=== PATIENT | female | born 1955 | race African-American/Black ===

== ENCOUNTER 2018-06-09 19:44 | Emergency (ER) | payer OTHER ==
[~2018-06-09] VITALS: Ht 177.8 cm; Wt 127.0 kg
[~2018-06-09 19:44] MED LIST: ADVAIR 250-501 EACH; AMITRIPTYLINE H25 M4; CIPROFLOXACIN500 M1 PO; EPIPEN 2-P0.3 MG/0.3 IM; KLOR-CON 1010 MEQ PO; LAMICTAL100 MG PO; LANTUS; METFORMIN HCL500 MG PO; MIGRELIEF CAPL1 EACH PO; MUCINEX TA600 MG/TA2 PO; NABUMETONE 500500 M1; NEURONTIN 300300 M1; NORCO 5-325 TA1 EACH PO; NOVOLOG100 UNIT/1; OMEPRAZOLE 20 M20 MG; PAXIL10 MG PO; PLAVIX 75 MG TA75 M1 PO; PREDNISONE50 MG PO; PRINIVIL5 MG; SEIZURE MEDICATION; SIMVASTATIN20 MG; SINGULAIR 10 MG10 M1 PO; SPIRIVA INH; TESSALON PERLE100 MG PO; TRAMADOL 50 MG50 MG PO; TUSSIONEX PENN473 ML PO; VOLTAREN GEL 1100 G2; XANAX 1 MG TABLE1 MG PO; ZPAK PO
[2018-06-09 20:27] LABS: ABSOLUTE NEUTROPHILS 3.4 thou/uL (1.4-8.2); BASOPHILS 0.8 % (0.0-2.0); EOSINOPHILS 3.4 % (0.0-3.0); HEMATOCRIT 41.3 % (37.0-47.0); HEMOGLOBIN 13.6 gm/dL (12.0-15.0); MCH 28.1 pg (26.0-34.0); MCV 85.1 fL (80.0-100.0); MONOCYTES 7.7 % (1.0-8.0); PLATELET COUNT 324 thou/uL (150-400); POLYS 65.1 % (36.0-66.0); RBC 4.85 mil/uL (4.20-5.00); RDW 13.9 % (10.5-14.5); WBC 5.2 thou/uL (4.0-11.0)
[2018-06-09 20:40] LABS: ANION GAP 11 mmol/L (7-16); BUN 31 mg/dL (7-18); CALCIUM 10.7 mg/dL (8.5-10.1); CHLORIDE 98 mmol/L (98-107); CO2 26 mmol/L (21-32); CREATININE 1.2 mg/dL (0.6-1.0); GLUCOSE 141 mg/dL (74-106); POTASSIUM 4.8 mmol/L (3.5-5.1); SODIUM 135 mmol/L (136-145)
[2018-06-09 20:50] LABS: ALBUMIN 3.9 g/dL (3.4-5.0); SGOT 25 U/L (15-37); SGPT 38 U/L (30-65); TOTAL BILIRUBIN 0.4 mg/dL (<0.1-1.0); TROPONIN-I <0.06 ng/mL (<0.06)
[2018-06-09 22:12] LABS: MAGNESIUM 1.8 mg/dL (1.8-2.4)
[2018-06-09 22:19] LABS: URINE BILIRUBIN NEGATIVE (Negative); URINE BLOOD NEGATIVE (Negative); URINE CLARITY CLEAR; URINE COLOR YELLOW; URINE GLUCOSE-RANDOM* NEGATIVE (Negative); URINE KETONES NEGATIVE (Negative); URINE LEUKOCYTES-REFLEX NEGATIVE (Negative); URINE NITRITE-REFLEX NEGATIVE (Negative); URINE PROTEIN (DIPSTICK) NEGATIVE (Negative); URINE SPECIFIC GRAVITY <= 1.005 (1.005-1.035); URINE UROBILINOGEN 0.2 E.U./dl (0.2-1.0)
[2018-06-09 22:23] LABS: APTT 22.6 Seconds (24.5-32.8); D-DIMER 4.3 ug/mLFEU (0.19-0.50)
[2018-06-10] MEDS ORDERED: VENTOLIN HFA 1818 GM INH (00:28)
[2018-06-10] MEDS ORDERED: AUGMENTIN 875-1 EACH PO (00:28)
[2018-06-10] MEDS ORDERED: PREDNISONE 20 M20 MG PO (00:28)
[2018-06-10 01:30] VITALS: BP 138/83
--- NOTE | 2018-06-10 10:35 | EKG ---
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: : 1955 Requested By: Riddhi Jewell Order Number: [id number] MD: Andres Burgos Measurements Intervals [place] Rate: 91 P: -16 MO: 159 QRS: 14 QRSD: 99 T: 36 QT: 362 QTc: 446 Interpretive Statements Sinus rhythm Compared to ECG 04/30/2015 12:30:27 No significant changes Electronically Signed On 06-10-2018 10:35:51 CDT by Andres Burgos [email or web address] ��������������������������������������������� <ELECTRONICALLY SIGNED> ���������������������������������������� By: Andres Burgos MD ��������������������������������������������� 06/10/18 1035 01 01 Andres Burgos MD /EPI
== END 2018-06-10 01:36 | disposition home or self-care (01) ==
LOC: ER 19:44
PROVIDERS: Emergency Medicine; Physician Assistant
DX: R06.02 Shortness of breath (principal); E11.22 Type 2 diabetes mellitus with diabetic chronic kidney disease; N18.9 Chronic kidney disease, unspecified; K59.00 Constipation, unspecified; R59.0 Localized enlarged lymph nodes; R79.1 Abnormal coagulation profile; E66.01 Morbid (severe) obesity due to excess calories; E11.40 Type 2 diabetes mellitus with diabetic neuropathy, unspecified; J44.9 Chronic obstructive pulmonary disease, unspecified; G47.30 Sleep apnea, unspecified; M19.90 Unspecified osteoarthritis, unspecified site; E78.5 Hyperlipidemia, unspecified; Z68.41 Body mass index [BMI] 40.0-44.9, adult; Z79.4 Long term (current) use of insulin; Z79.899 Other long term (current) drug therapy; Z88.8 Allergy status to other drugs, medicaments and biological substances

== ENCOUNTER → 2018-07-17 | Outpatient (CLI) | payer OTHER ==
[~2018-07-17] MED LIST changes: +AUGMENTIN 875-1 EACH PO; +PREDNISONE 20 M20 MG PO; +VENTOLIN HFA 1818 GM INH
[2018-07-17 08:13] LABS: HEMATOCRIT 40.5 % (37.0-47.0); HEMOGLOBIN 13.3 gm/dL (12.0-15.0); MCH 28.2 pg (26.0-34.0); MCHC 32.8 g/dL (28.0-37.0); MCV 85.9 fL (80.0-100.0); RBC 4.72 mil/uL (4.20-5.00); RDW 13.9 % (10.5-14.5); WBC 4.5 thou/uL (4.0-11.0)
[2018-07-17 08:23] LABS: CALCIUM 10.5 mg/dL (8.5-10.1); CREATININE 1.1 mg/dL (0.6-1.0); POTASSIUM 4.8 mmol/L (3.5-5.1)
[2018-07-17 08:28] LABS: APTT 25.3 Seconds (24.5-32.8); PROTIME 10.3 Seconds (9.3-11.4)
--- NOTE | 2018-07-20 10:06 | PATH ---
[facility] [address] [place] [address] PATHOLOGY RPT PROCEDURE Name: SAMARIA NUNEZ Room #: REG [facility] M.R.#: [id number] ������������������ Admission: 07/17/18 ������������������ Date of : 57 Discharge: Report #: [id number] Path Case #: [id number] LCA Accession Number: [id number] . 01 Material submitted: . lymph node - LEFT NECK LYMPH NODE. Modifiers: left, neck . 01 Clinical history: . Left lymph node, for lymphoma . 02 Diagnosis: Lymph node "left neck lymph node: - Granulomatous inflammation consistent with a granuloma. See comment. (SHA:melinda; 07/18/2018) QMS/07/18/2018 . 02 Comment: The differential includes infection and sarcoidosis. An acid-fast and fungal stain are negative Since this is a biopsy partial involvement by a lymphoma or a malignancy cannot be excluded as the entire lymphnode is not present for evaluation. Suggest clinical correlation. Flow studies are pending. This case is also reviewed by Dr. Kayla Boudreaux. (SHA:melinda; 07/18/2018) . 02 Addendum: . Special studies report received from [facility], [address] [place] [address], [address], [place], [address], on case [id number], labeled with their number [id number], dated 07/19/2018. . Flow Cytometry: Hematologic Neoplasia Assessment . Clinical History Evaluation for hematolymphoid neoplasia . Indication for Study Evaluation for hematolymphoid neoplasia . Specimen Lymph Node, Left . Viability 83% (7AAD exclusion) . Interpretation Lymph Node, Left: - No significant lymphoid immunophenotypic abnormalities detected (see [address] [address] PATHOLOGY RPT PROCEDURE Name: SAMARIA NUNEZ Room #: REG [facility]..#: [id number] ������������������ Admission: 07/17/18 ������������������ Date of : 57 Discharge: Report #: [id number] Path Case #: [id number] comment). . Comments There are no significant immunophenotypic abnormalities in this specimen. It is of note that non- hematolymphoid neoplasms, Hodgkin lymphoma, some T-cell lymphomas and some large cell lymphomas cannot be totally excluded based solely on flow cytometry analysis. Correlation with available clinical, laboratory, and morphologic data is recommended. . Populations Analyzed Lymphocytes: 76% B-cells: 27.2%, polytypic/polyclonal sIg light chain pattern T-cells: no significant abnormalities of the markers tested CD4:CD8: 8.9 NK cells: 1.0% Granulocytes: 1% Present CD45 Negative 22% No significant reactivity with the markers tested Events/Debris: (may represent non-hematolymphoid cells, degenerated cells, debris, unlysed red blood cells, etc.) . Morphologic Evaluation A slide was reviewed for quality inspector purposes only. . Specimen Description Total Cell Yield: 0.69X10 and 6 . Reagent(s) Used CD2, CD3, CD4, CD5, CD7, CD8, CD10, CD11b, CD19, CD20, CD23, CD30, CD38, CD43, CD45, CD56, CD57, FMC-7, HLA-DR, kappa, lambda . Electronically Signed by Elissa Rodriguez MD at 10:19AM [facility] on 07/19/2018 at [facility]. Elissa Rodriguez MD Pathologist . . Intended Use Flow cytometry is optimally used to immunophenotypically characterize abnormal populations when they are detected. Negative flow cytometry results do not exclude lymphoma or neoplasia. Possible false negative flow cytometry results may occur in, but are not limited to, the following: neoplastic cells in Hodgkin lymphoma are not typically adequately represented by routine clinical flow cytometry; neoplastic cells may be lost or inadequately represented due to degeneration, sample processing, sampling artifact, or patchy involvement; plasma cells are typically underrepresented by flow cytometry; immature cells/blasts may be underrepresented due to hemodilution; myeloproliferative disorders and low [address] [address] PATHOLOGY RPT PROCEDURE Name: SAMARIA NUNEZ Room #: REG CLGiancarlo Coppola#: [id number] ������������������ Admission: 07/17/18 ������������������ Date of : 57 Discharge: Report #: [id number] Path Case #: [id number] grade myelodysplasia may not have immunophenotypic abnormalities or increased blasts. Correlation with all available clinical, laboratory, and morphologic data is always necessary to assess for the possibility of false negative flow cytometry results and to establish a diagnosis. Each marker in this analysis was used to assess for potential antigenic abnormalities or to evaluate detected abnormalities. . Disclaimer(s) This test was performed at [facility]. at [address] [place], [address] - Commissioning Specialist: Rich Winslow MD. [employer] is a business unit of [employer] a wholly-owned subsidiary of [employer]. . Any image or images that accompany this report are termite control representative images only and should not be used to render a diagnosis. . This test was developed and its performance characteristics determined by [employer]. It has not been cleared or approved by the Food and Drug Administration (FDA). The FDA has determined that such clearance or approval is not necessary. . For inquiries, the physician may contact Lab: [phone] . A complete copy of the report is on file. . Professional services performed by [employer]. at [address], [place] [address]. Technical services performed by [employer]. at [address], [place] [address]. . (AMJ 07/19/2018) . AZJ/07/19/2018 Addendum Electronically Signed by Dmitry Echavarria MD. Pathologist . 02 Electronically signed: . Dmitry Echavarria MD, Pathologist NPI- [id number] . 01 Gross description: . The specimen is received in formalin, labeled "Yanna Nunez, left neck lymph node", are several jefferson-brown, hemorrhagic fragments measuring 0.4 x 0.2 x 0.1 cm in aggregate. The specimen is entirely submitted in A1. Also received is an RPMI tube, labeled with patient's name and left neck lymph node. This is forwarded for flow cytometry studies. (SWS; 07/17/2018) [facility] [address] [place] [address] PATHOLOGY RPT PROCEDURE Name: SAMARIA NUNEZ Room #: REG [facility].#: [id number] ������������������ Admission: 07/17/18 ������������������ Date of : 57 Discharge: Report #: [id number] Path Case #: [id number] SHS/SHS . 02 Microscopic: . . . 02 Pathologist provided ICD-10: I88.8 . 02 CPT . 554720, 822682, 596488 Specimen Comment: A courtesy copy of this report has been sent to Specimen Comment: [phone], , . Specimen Comment: Report sent to ,DR WALLER / DR BOSE Performed at: 01 [facility] [address], [place], [place] [id number] MD Amaury Gama MD Phone: [phone] Performed at: 02 [facility] [address], [place] [id number] MD Fabiola Vance MD Phone: [phone]
== END | disposition home or self-care (01) ==
LOC: ULTRA 07:06 → RAD 07:06 → ULTRA 16:06
PROVIDERS: Internal Medicine
DX: I88.8 Other nonspecific lymphadenitis (principal); R92.1 Mammographic calcification found on diagnostic imaging of breast; N18.6 End stage renal disease; G43.909 Migraine, unspecified, not intractable, without status migrainosus; F41.9 Anxiety disorder, unspecified; E11.9 Type 2 diabetes mellitus without complications; J44.9 Chronic obstructive pulmonary disease, unspecified; M19.90 Unspecified osteoarthritis, unspecified site; G62.9 Polyneuropathy, unspecified; E66.01 Morbid (severe) obesity due to excess calories; Z79.4 Long term (current) use of insulin; Z79.899 Other long term (current) drug therapy; Z88.8 Allergy status to other drugs, medicaments and biological substances; Z98.0 Intestinal bypass and anastomosis status; Z98.890 Other specified postprocedural states

== ENCOUNTER → 2018-11-15 | Outpatient (CLI) | payer OTHER ==
[2018-11-15 08:00] LABS: CREATININE 1.3 mg/dL (0.6-1.0)
== END ==
LOC: CAT 06:59
PROVIDERS: Internal Medicine
DX: D86.9 Sarcoidosis, unspecified (principal); E27.9 Disorder of adrenal gland, unspecified; J45.909 Unspecified asthma, uncomplicated; E11.9 Type 2 diabetes mellitus without complications; E78.5 Hyperlipidemia, unspecified; I10 Essential (primary) hypertension; G43.909 Migraine, unspecified, not intractable, without status migrainosus; E66.9 Obesity, unspecified; G47.33 Obstructive sleep apnea (adult) (pediatric)

== ENCOUNTER 2019-01-21 14:38 | Emergency (ER) | payer OTHER ==
[~2019-01-21] VITALS: Ht 167.6 cm; Wt 115.2 kg
[2019-01-21 15:21] LABS: ABSOLUTE NEUTROPHILS 4.5 thou/uL (1.4-8.2); BASOPHILS 1.4 % (0.0-2.0); EOSINOPHILS 2.6 % (0.0-3.0); HEMATOCRIT 39.9 % (37.0-47.0); LYMPHOCYTES 23.4 % (24.0-44.0); MCH 28.6 pg (26.0-34.0); MCHC 32.5 g/dL (28.0-37.0); MCV 88.1 fL (80.0-100.0); MONOCYTES 6.7 % (1.0-8.0); PLATELET COUNT 351 thou/uL (150-400); POLYS 65.9 % (36.0-66.0); RBC 4.53 mil/uL (4.20-5.00); RDW 13.7 % (10.5-14.5); WBC 6.8 thou/uL (4.0-11.0)
[2019-01-21 15:31] LABS: CALCIUM 9.9 mg/dL (8.5-10.1); CREATININE 1.2 mg/dL (0.6-1.0); POTASSIUM 4.3 mmol/L (3.5-5.1)
[2019-01-21 15:37] LABS: ALBUMIN 3.8 g/dL (3.4-5.0); TOTAL BILIRUBIN 0.4 mg/dL (<0.1-1.0)
[2019-01-21 18:14] VITALS: BP 97/54
== END 2019-01-21 18:15 | disposition home or self-care (01) ==
LOC: ER 14:38
PROVIDERS: Emergency Medicine
DX: K59.00 Constipation, unspecified (principal); E66.01 Morbid (severe) obesity due to excess calories; R10.84 Generalized abdominal pain; J44.9 Chronic obstructive pulmonary disease, unspecified; J45.909 Unspecified asthma, uncomplicated; E78.5 Hyperlipidemia, unspecified; E11.40 Type 2 diabetes mellitus with diabetic neuropathy, unspecified; Z88.8 Allergy status to other drugs, medicaments and biological substances; Z79.899 Other long term (current) drug therapy; Z79.4 Long term (current) use of insulin

== ENCOUNTER → 2019-03-21 | Outpatient (CLI) | payer OTHER ==
[~2019-03-21] MED LIST changes: -AMITRIPTYLINE H25 M4; +AMITRIPTYLINE H25 M4 PO; +AMITRIPTYLINE H75 M1 PO; +EMGALITY S120 MG/1 M SUBQ; +FISH OIL 1,0001 EAC9 PO; +JANUMET XR 50-1 EAC1 PO; +MELATONIN3 M1 PO; +NABUMETONE 500500 M1 PO; -NEURONTIN 300300 M1; +NEURONTIN 300300 M1 PO; -NOVOLOG100 UNIT/1; +NOVOLOG100 UNIT/1 SUBQ; +RAMIPRIL10 MG PO; +SUPER THERAVIT1 EACH PO; +TOPAMAX 25 MG T25 M1 PO; +TOUJEO SOL300 UNIT/1 SUBQ; +TRELEGY ELLIPT1 EACH INH
== END ==
LOC: SJCVC 15:03
DX: R94.31 Abnormal electrocardiogram [ECG] [EKG] (principal); I10 Essential (primary) hypertension; J44.9 Chronic obstructive pulmonary disease, unspecified; E11.9 Type 2 diabetes mellitus without complications; E78.5 Hyperlipidemia, unspecified; G47.33 Obstructive sleep apnea (adult) (pediatric); Z90.49 Acquired absence of other specified parts of digestive tract; Z90.710 Acquired absence of both cervix and uterus; Z79.899 Other long term (current) drug therapy

== ENCOUNTER → 2019-04-19 | Outpatient (CLI) | payer OTHER | LOC: SJCVCIMAG 07:33 | DX: R06.00 Dyspnea, unspecified (principal); R60.9 Edema, unspecified; I48.91 Unspecified atrial fibrillation; D86.9 Sarcoidosis, unspecified; R94.31 Abnormal electrocardiogram [ECG] [EKG]; I10 Essential (primary) hypertension; J44.9 Chronic obstructive pulmonary disease, unspecified; E11.9 Type 2 diabetes mellitus without complications; E78.5 Hyperlipidemia, unspecified; E66.9 Obesity, unspecified; Z79.4 Long term (current) use of insulin; Z79.84 Long term (current) use of oral hypoglycemic drugs; Z79.82 Long term (current) use of aspirin; Z79.899 Other long term (current) drug therapy ==

== ENCOUNTER 2020-04-23 10:55 | Emergency (ER) | payer OTHER ==
[~2020-04-23] VITALS: Ht 167.6 cm; Wt 123.4 kg
[2020-04-23 11:51] LABS: ABSOLUTE NEUTROPHILS 2.1 thou/uL (1.4-8.2); EOSINOPHILS 4.3 % (0.0-3.0); HEMATOCRIT 39.1 % (37.0-47.0); HEMOGLOBIN 12.6 gm/dL (12.0-15.0); LYMPHOCYTES 29.7 % (24.0-44.0); MCH 28.2 pg (26.0-34.0); MCHC 32.2 g/dL (28.0-37.0); MCV 87.5 fL (80.0-100.0); MONOCYTES 9.4 % (1.0-8.0); PLATELET COUNT 232 thou/uL (150-400); POLYS 55.6 % (36.0-66.0); RBC 4.47 mil/uL (4.20-5.00); RDW 13.7 % (10.5-14.5); WBC 3.8 thou/uL (4.0-11.0)
[2020-04-23 12:01] LABS: ANION GAP 11 mmol/L (7-16); BUN 17 mg/dL (7-18); CALCIUM 9.1 mg/dL (8.5-10.1); CHLORIDE 99 mmol/L (98-107); CO2 24 mmol/L (21-32); CREATININE 1.3 mg/dL (0.6-1.0); GLUCOSE 289 mg/dL (74-106); SODIUM 134 mmol/L (136-145)
[2020-04-23 12:11] LABS: ALBUMIN 3.8 g/dL (3.4-5.0); SGOT 27 U/L (15-37); SGPT 36 U/L (30-65); TOTAL BILIRUBIN 0.4 mg/dL (0.2-1.0); TOTAL PROTEIN 7.2 g/dL (6.4-8.2); TROPONIN-I <0.06 ng/mL (<0.06)
[2020-04-23] MEDS ORDERED: PREDNISONE 20 M20 MG PO (13:22)
[2020-04-23 14:11] VITALS: BP 165/89
--- NOTE | 2020-04-24 07:11 | EKG ---
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 : 1955 Requested By: Austin Connelly Order Number: [id number] MD: Bobby Knapp Measurements Intervals [place] Rate: 100 P: 37 MD: 166 QRS: 7 QRSD: 103 T: 93 QT: 328 QTc: 423 Interpretive Statements Sinus tachycardia Low voltage, precordial leads Compared to ECG 06/09/2018 20:02:15 Low QRS voltage now present Sinus rhythm no longer present Electronically Signed On 04-24-2020 7:10:57 IMMIGRATION INVESTIGATOR by Bobby Knapp [email or web address] <ELECTRONICALLY SIGNED> By: Bobby Knapp MD, [facility] 04/24/20 0710 1127 26 Bobby Knapp MD, FACC /EPI
== END 2020-04-23 14:12 | disposition home or self-care (01) ==
LOC: ER 10:55
PROVIDERS: Emergency Medicine
DX: J45.901 Unspecified asthma with (acute) exacerbation (principal); E11.9 Type 2 diabetes mellitus without complications; J44.9 Chronic obstructive pulmonary disease, unspecified; E78.5 Hyperlipidemia, unspecified; K21.9 Gastro-esophageal reflux disease without esophagitis; G43.909 Migraine, unspecified, not intractable, without status migrainosus; Z79.4 Long term (current) use of insulin; Z79.899 Other long term (current) drug therapy; Z88.6 Allergy status to analgesic agent; Z88.8 Allergy status to other drugs, medicaments and biological substances; Z20.822 Contact with and (suspected) exposure to COVID-19

== ENCOUNTER → 2020-04-29 | Outpatient (CLI) | payer OTHER | LOC: RAD 08:52 | PROVIDERS: ATTEND Internal Medicine | DX: J98.11 Atelectasis (principal); R06.00 Dyspnea, unspecified ==

== ENCOUNTER 2020-06-17 09:43 | Emergency (ER) | payer OTHER ==
[~2020-06-17] VITALS: Ht 167.6 cm; Wt 123.4 kg
[2020-06-17 10:40] LABS: BASOPHILS 1.1 % (0.0-2.0); HEMATOCRIT 39.9 % (37.0-47.0); HEMOGLOBIN 13.2 gm/dL (12.0-15.0); LYMPHOCYTES 20.4 % (24.0-44.0); MCH 28.7 pg (26.0-34.0); MCV 86.9 fL (80.0-100.0); PLATELET COUNT 270 thou/uL (150-400); POLYS 67.5 % (36.0-66.0); RDW 14.2 % (10.5-14.5); WBC 4.5 thou/uL (4.0-11.0)
[2020-06-17 10:49] LABS: CALCIUM 9.3 mg/dL (8.5-10.1); CREATININE 1.2 mg/dL (0.6-1.0)
[2020-06-17 10:55] LABS: URINE BILIRUBIN NEGATIVE (Negative); URINE BLOOD TRACE (Negative); URINE CLARITY SL CLOUDY; URINE COLOR YELLOW; URINE GLUCOSE-RANDOM* NEGATIVE (Negative); URINE KETONES TRACE (Negative); URINE LEUKOCYTES-REFLEX NEGATIVE (Negative); URINE NITRITE-REFLEX NEGATIVE (Negative); URINE PROTEIN (DIPSTICK) NEGATIVE (Negative); URINE SPECIFIC GRAVITY 1.015 (1.005-1.035)
[2020-06-17 10:56] LABS: ALBUMIN 3.6 g/dL (3.4-5.0); TOTAL BILIRUBIN 1.1 mg/dL (0.2-1.0)
[2020-06-17 12:21] VITALS: BP 109/48
== END 2020-06-17 12:22 | disposition home or self-care (01) ==
LOC: ER 09:43
PROVIDERS: Emergency Medicine
DX: K59.00 Constipation, unspecified (principal); R10.84 Generalized abdominal pain; E66.01 Morbid (severe) obesity due to excess calories; E11.9 Type 2 diabetes mellitus without complications; M19.90 Unspecified osteoarthritis, unspecified site; G62.9 Polyneuropathy, unspecified; G43.909 Migraine, unspecified, not intractable, without status migrainosus; Z88.8 Allergy status to other drugs, medicaments and biological substances; Z88.6 Allergy status to analgesic agent; Z79.899 Other long term (current) drug therapy

== ENCOUNTER → 2020-09-14 | Outpatient (CLI) | payer OTHER ==
[~2020-09-14] VITALS: Ht 177.8 cm; Wt 113.4 kg
[~2020-09-14] MED LIST changes: +AMITRIPTYLINE H50 M2 PO; +MULTI VITAMIN1 EACH PO; -NABUMETONE 500500 M1 PO; +NABUMETONE 500500 M2 PO; +NEURONTIN300 MG PO; +PRAVASTATIN SOD80 MG PO; +TRELEGY ELLIPT1 EAC1 INH; +TRULICITY0.75 MG/0. SUBQ; +ZZZQUIL25 M1 PO
--- NOTE | 2020-09-15 16:06 | PATH ---
[facility] [place] [address] PATHOLOGY RPT PROCEDURE Name: SAMARIA NUNEZ Room #: REG KAYDEN Solares.#: [id number] Admission: 09/14/20 Date of : 57 Discharge: Report #: [id number] Path Case #: [id number] LCA Accession Number: [id number] . 01 Material submitted: . PART A: stomach - ANTRUM BIOPSY R/O H. PYLORI PART B: esophagus - ESOPHAGUS BIOPSY R/O EOSINOPHILIC ESOPHAGITIS . 01 Clinician provided ICD-10: n . 01 Clinical history: . EGD/COLONOSCOPY ABD PAIN/CONSTIPATION GASTRITIS/ESOPHAGEAL STRICTURE/DIVERTICULOSIS . 02 Diagnosis: A. Gastric mucosa, antrum, endoscopic biopsy: - Mild chronic gastritis with features of reactive gastropathy as well as extensive intestinal metaplasia. - Negative for atrophy or dysplasia. - Negative for Helicobacter pylori (properly controlled immunohistochemical stain performed). . B. Squamous mucosa, esophagus R/O eosinophilic esophagitis, endoscopic biopsy: - Mild active esophagitis with features of reflux esophagitis. - Negative for increase in intraepithelial eosinophils. - Negative for intestinal metaplasia or dysplasia. (IUV:melinda; 09/15/2020) QMS 09/15/2020 1252 Local . 02 Electronically signed: . Fabiola Vance MD, Pathologist NPI- [id number] . 01 Gross description: . A. The specimen is received in formalin, labeled "Samaria Nunez L and antrum BX". It consists of multiple jefferson irregular soft tissue fragments measuring 0.8 x 0.6 x 0.2 cm in aggregate. The specimen is entirely submitted between sponges in A1. . B. The specimen is received in formalin, labeled " Samaria Nunez L and esophagus BX". It consists of multiple jefferson-white, irregular soft tissue fragments measuring 1.5 x 0.5 x 0.1 cm in aggregate. The specimen is placed in a biopsy bag and entirely submitted in B1. (MRF; 09/14/2020) [place] [address] PATHOLOGY RPT PROCEDURE Name: SAMARIA NUNEZ Room #: REG CLGiancarlo M.R.#: [id number] Admission: 09/14/20 Date of : 57 Discharge: Report #: [id number] Path Case #: [id number] MFE/MFE 09/15/2020 [facility] Local . 02 Pathologist provided ICD-10: K29.50, K20.90 . 02 CPT . 434896, 595619, O85455 Specimen Comment: A courtesy copy of this report has been sent to [phone] Specimen Comment: 1852 Specimen Comment: Report sent to , DR HORNER / DR BOSE Performed at: [address], [place], [place] [id number] MD Dmitry Echavarria MD Phone: [phone] Performed at: [address] [id number] MD Fabiola Vance MD Phone: [phone]
== END | disposition home or self-care (01) ==
LOC: GI 04-17 09:36
PROVIDERS: ATTEND Internal Medicine Gastroenterology
DX: R10.84 Generalized abdominal pain (principal); R10.13 Epigastric pain; R13.10 Dysphagia, unspecified; K31.9 Disease of stomach and duodenum, unspecified; K59.00 Constipation, unspecified; K29.50 Unspecified chronic gastritis without bleeding; K21.00 Gastro-esophageal reflux disease with esophagitis, without bleeding; I10 Essential (primary) hypertension; I25.10 Atherosclerotic heart disease of native coronary artery without angina pectoris; E11.9 Type 2 diabetes mellitus without complications; J44.9 Chronic obstructive pulmonary disease, unspecified; E78.5 Hyperlipidemia, unspecified; G43.909 Migraine, unspecified, not intractable, without status migrainosus; F32.9 Major depressive disorder, single episode, unspecified; F41.9 Anxiety disorder, unspecified; M19.90 Unspecified osteoarthritis, unspecified site; Z98.890 Other specified postprocedural states; Z87.19 Personal history of other diseases of the digestive system; Z79.899 Other long term (current) drug therapy; Z79.4 Long term (current) use of insulin
CPT/HCPCS: 62110; 62900

== ENCOUNTER 2020-10-01 07:11 | Inpatient (IN) | payer OTHER ==
[~2020-10-01] VITALS: Ht 180.3 cm; Wt 118.8 kg
[2020-10-01 08:55] LABS: CALCIUM 8.8 mg/dL (8.5-10.1); POTASSIUM 4.1 mmol/L (3.5-5.1)
[2020-10-01 09:03] LABS: ALBUMIN 3.1 g/dL (3.4-5.0); TOTAL BILIRUBIN 0.3 mg/dL (0.2-1.0); TOTAL PROTEIN 6.8 g/dL (6.4-8.2)
[2020-10-01 09:35] VITALS: BP 153/78
[2020-10-01 11:33] VITALS: BP 138/70
[2020-10-01 15:45] VITALS: BP 149/86
--- NOTE | 2020-10-01 19:38 | NUR ---
Patient admit to unit via bed. Her is at bedside. A/OX4. Om 3 L o2 via nasal cannula. Bedbound. Has 2 gauze dressing oN ABD-dry, clean and intact. Iv fluids infusing @ 75 ml/hr, 20 g right hand. Incont of b/b She states she does not use o2 at home. Her pain level is 8/10 to abd, fentanyl given.
[2020-10-01 20:07] VITALS: BP 174/93
--- NOTE | 2020-10-02 05:24 | NUR ---
Pt. rested quietly at intervals during the night when checked on during frequent rounds. Pain meds given for c/o abdominal pain (see emar) with some relief of pain noted. Dressing to abdomen is dry and intact. Bed alarm is on.
[2020-10-02 07:56] VITALS: BP 138/70
--- NOTE | 2020-10-02 10:46 | NUR ---
Assumed care of pt at 0700. Pt a&ox4. C/o pain in abdomen. Prn pain medications administered. Dressings c/d/i. 3L O2. Incontinent. IVF infusing. Talked to pt's over the phone and updated on patient's status. Call light within reach. Fall precautions in place. Will continue to monitor.
--- NOTE | 2020-10-02 13:32 | O ---
[facility] [place] [address] [address] [place] [address] OPERATIVE REPORT Name: SAMARIA OLMEDO Room #: 444-P [facility] M.RTimo#: [id number] Admission: 10/01/20 Attend Phys: Finesse Hawkins MD Discharge: Date of : 57 Report #: [id number] THIS REPORT FOR: cc: Chilo Gupta MD,Finesse Sloan MD, MD ~ cc: Melchor Gupta MD DATE OF SERVICE: 10/01/2020 PREOPERATIVE DIAGNOSES: Cholecystitis with small soft gallstones. POSTOPERATIVE DIAGNOSES: Cholecystitis with cholelithiasis, lots of intraabdominal adhesions. PROCEDURE PERFORMED: 1. Attempted laparoscopic cholecystectomy converted to open cholecystectomy due to extensive adhesions. 2. Lysis of adhesions. SURGEON: Finesse Hawkins MD ANESTHESIA: General anesthesia. COMPLICATIONS: None. ESTIMATED BLOOD LOSS: 250 mL DESCRIPTION OF PROCEDURE: With the patient under general anesthesia, abdomen was prepped and draped in sterile fashion. A timeout was performed. The patient has had multiple midline incision. I decided to make a small cut down incision lateral and slightly superior to the umbilicus along the edge of the rectus muscle. A 2.5 cm incision was made. The anterior fascia was identified. The anterior fascia was opened transversely. The muscle was spread. The posterior fascia was then grasped with hemostat. This was also opened. The suture placed on the fascial layers. When the posterior fascia was opened, there is adhesion in this area and I gently probed it with my finger and noted that the adhesion was not easy to be . There is no free space. I decided to go ahead and make another incision up higher about 2 fingerbreadths beneath the costal margin. This was made in the midclavicular line. After incising through skin and subcutaneous tissue, what appears to be the anterior fascia was also identified. This was opened up, 0 Vicryl suture placed on this, muscle was spread. The posterior fascia was opened. After opening this, there was an adhesion just below this, looks like it is soft and like intestine. At this point, I could not proceed any further laparoscopically. I broke scrub and went out to talk to the and made him aware that if we continue, I have [address] [address] OPERATIVE REPORT Name: SAMARIA OLMEDO Room #: 444-P [facility] Bill Coppola#: [id number] Admission: 10/01/20 Attend Phys: Finesse Hawkins MD Discharge: Date of : 57 Report #: [id number] to make an open incision. He tried to call his daughter who is a doctor and he could not get through, but he decided to go ahead and proceed. I reviewed the CT scan and I do not see much around the area of the gallbladder. Incision was then enlarged. Cautery was used to obtain hemostasis. The patient did have prominent blood vessels. These were clipped or ligated with 2-0 Vicryl tie. The anterior fascia was opened, rectus muscle was divided. Posterior fascia was opened and right medial to where I was located, there was actually free space in the peritoneal cavity, but the liver was identified and it was adherent to the structure that I first identified under the laparoscopic cutdown site. This turned out to be the gallbladder. The lateral person had to be opened and adhesions had to be divided here. The colon was noted to be deep underneath some fat tissue. The gallbladder was from the adhesions underneath. There was some thickening of scar tissue lateral to the gallbladder. Gallbladder was then taken from top down. There were some vessels in the liver bed that were also actively bleeding. This accounted for the blood loss. Clips were applied. The peritoneum over the cystic duct was then dissected free once the entire gallbladder was freed from the adhesion. Gallbladder was cased in adhesions. The cystic artery was then found. This was clipped x2 proximally and 1 distally and then divided. The cystic duct was then isolated. There was some fibrous tissue around the cystic duct. The cystic duct was clipped between the gallbladder and the cystic duct opening was made in the cystic duct just proximal to this, cholangiogram catheter was placed. Fluoroscopic cholangiogram was obtained. On initial run, the cholangiogram catheter was identified in the cystic duct. No harm to the common duct. The upper part of the hepatic duct filled out well. The portions of the common duct was also filled out. I did not see any definite filling defect. There appears to be some thickened material, probably sludge. However, I could not get any dye to go in distal common duct nor the duodenum. Glucagon was given and repeat injection was performed again about 20 mL of half contrast and the duct filled out. Again, no visible spillage was identified. There was a liver function test from this morning and her bilirubin is normal. The liver functions are normal. No signs of obstruction. This is thought to be sludge and also spasm of the ampulla. Further cholangiogram was then abandoned. Catheter was then removed. The proximal cystic duct was then clipped and also ligated with 2-0 silk tie. Hemostasis was then checked further. Irrigation was performed. Surgicel fibrillar was placed on the liver bed. Hemostasis obtained. Hemostasis was also obtained. The sponges were all removed. Lap counts and the instrument counts were correct. The abdominal wall was then closed. Posterior fascia was closed with running 0 PDS suture and the anterior fascia was closed with 0 Prolene in running fashion. The skin was irrigated, closed with 4-0 PDS running subcuticular fashion. The small initial cutdown incision was closed with 0 Vicryl. The posterior fascia was closed with [id number] 0 Vicryl x2. The anterior fascia was also closed with 0 Vicryl [id number] x2. Care was taken when closing the posterior fascia not to harm the underlying tissue. [facility] [address] [place] [address] OPERATIVE REPORT Name: SAMARIA OLMEDO Room #: 444-P [facility]..#: [id number] Admission: 10/01/20 Attend Phys: Finesse Hawkins MD Discharge: Date of : 57 Report #: [id number] Skin was closed with 5-0 PDS. Steri-Strip, Band-Aids applied. A 4 x 4 Op-Site placed on the subcostal incision. The patient was awakened and taken to recovery room, tolerated the procedure well. <ELECTRONICALLY SIGNED> By: Finesse Hawkins MD 10/02/20 [phone] Finesse Hawkins MD /nt
--- NOTE | 2020-10-02 14:01 | NUR ---
ASSESSMENT: CM REVIEWED CHART AND SPOKE WITH PATIENT AT THE BEDSIDE. PT WAS ADMITTED DUE TO LAP FELY. PT REPORTS THAT SHE LIVES IN A HOUSE WITH HER . PT REPORTS HAVING ABOUT 2 STEPS TO ENTER THE HOME AND HER ASSIST HER WITH THESE. PT REPORTS ONCE INSIDE SHE HAS NO STEPS SHE HAS TO USE. PT REPORTS USING A WALKER FOR AMBULATION AND STATES THEY HAVE A COMMODE. PT REPORTS TAHT SHE HAS HAD [facility] IN THE PAST AND NEVER HAD A POST ACUTE CARE STAY. PT WORKED WITH THERAPY TODAY AND THEY ARE RECOMMENDING POST ACUTE CARE STAY. CM MET WITH PATIENT AND PROVIDED HER WITH A SNF LIST. PT REQUESTED TO HAVE A REFERRAL BE SENT TO [facility]. REFERRAL WAS SENT AND CM NOTIFIED LIASON. AWAITING INPUT FROM [facility] AT THIS TIME.
[2020-10-02 18:29] VITALS: BP 113/64
[2020-10-02 20:55] VITALS: BP 130/69
[2020-10-03 05:00] VITALS: BP 111/63
[2020-10-03 05:29] LABS: ABSOLUTE NEUTROPHILS 5.1 thou/uL (1.4-8.2); BASOPHILS 0.6 % (0.0-2.0); EOSINOPHILS 2.7 % (0.0-3.0); HEMATOCRIT 35.5 % (37.0-47.0); HEMOGLOBIN 11.9 gm/dL (12.0-15.0); LYMPHOCYTES 14.7 % (24.0-44.0); MCH 28.6 pg (26.0-34.0); MCHC 33.5 g/dL (28.0-37.0); MCV 85.6 fL (80.0-100.0); MONOCYTES 10.2 % (1.0-8.0); PLATELET COUNT 193 thou/uL (150-400); POLYS 71.8 % (36.0-66.0); RBC 4.15 mil/uL (4.20-5.00); RDW 15.2 % (10.5-14.5); WBC 7.1 thou/uL (4.0-11.0)
[2020-10-03 05:37] LABS: CREATININE 0.9 mg/dL (0.6-1.0); MAGNESIUM 1.8 mg/dL (1.8-2.4)
[2020-10-03 07:33] VITALS: BP 126/70
--- NOTE | 2020-10-03 08:33 | NUR ---
Assumed care of pt at 0700. Pt a&ox4. Pain controlled with prn pain meds. Dressing c/d/i. Encouraging patient to ambulate and move to the chair. IVF infusing. Call light within reach. Fall precautions in place. Will continue to monitor.
[2020-10-03 15:19] VITALS: BP 136/78
[2020-10-03 20:49] VITALS: BP 130/76
[2020-10-04 04:54] VITALS: BP 139/83
--- NOTE | 2020-10-04 05:00 | NUR ---
PT ALERT AND ORIENTED. PLEASANT. TOLERATING THE FULL LIQUID DIET.REPORTS BURPING A FEW TIMES. WORKING ON STRENGTH TO MOVE AROUND BETTER-CONTINUES TO BE ENCOURAGED. TOLERATED BIPAP WELL WITH CONT PULSE OX IN PLACE.
[2020-10-04 07:40] VITALS: BP 120/68
[2020-10-04 15:17] VITALS: BP 99/63
[2020-10-04 19:03] VITALS: BP 119/72
--- NOTE | 2020-10-05 02:51 | NUR ---
ASSESSED AT START OF SHIFT. PT RESYING IN BED. C/O PAIN HYDROCODONE GIVEN AND PT REPOSITIONED FOR COMFORT. ON 2L OF O2 AND WEARS CPAP AT HS. FALL PREC IN PLACE. MELATONIN GIVEN FOR SLEEP WILL CONT WITH POC TILL EOS.
[2020-10-05 04:56] VITALS: BP 142/93
[2020-10-05 08:20] VITALS: BP 145/81
[2020-10-05 09:23] VITALS: BP 142/93
--- NOTE | 2020-10-05 10:11 | PATH ---
[facility] [place] [address] [address] PATHOLOGY RPT PROCEDURE Name: SAMARIA OLMEDO Room #: 444-P [facility] Bill Coppola#: [id number] Admission: 10/01/20 Date of : 57 Discharge: Report #: [id number] Path Case #: [id number] LCA Accession Number: [id number] . 01 Material submitted: . gallbladder - GALLBLADDER . 01 Clinical history: . LAPAROSCOPIC CHOLECYSTECTOMY WITH GRAMS (+++) LAPAROSCOPIC CONVERT TO OPEN LYSIS OF ADHESIONS CHOLELITHIASIS . 02 Diagnosis: Gallbladder, cholecystectomy: - Mild chronic cholecystitis. - Cholelithiasis. (IUV:reproduction order processor; 10/02/2020) [facility] 10/02/2020 1658 Local . 02 Electronically signed: . Fabiola Vance MD, Pathologist NPI- [id number] . 01 Gross description: . Fixative: Formalin Labeled: Gallbladder Specimen received: Previously opened gallbladder Dimensions: 9.0 x 4.0 x 1 cm Serosa: Adipose covered and bloodstained Lymph node: None identified Mucosa: Velvety, patchy, and bloodstained Average wall thickness: Up to 0.2 cm Calculi: Present, black and friable Abnormalities: None identified . A1- Computer Support Specialist Instructor body, fundus, and the cystic duct margin. ([facility]; 10/01/2020) [facility] 10/01/2020 1609 Local . 02 Pathologist provided ICD-10: K80.10 . 02 CPT . 286955 Specimen Comment: A courtesy copy of this report has been sent to [phone] [address] PATHOLOGY RPT PROCEDURE Name: SAMARIA OLMEDO Room #: 444-[facility] Bill Coppola#: [id number] Admission: 10/01/20 Date of : 57 Discharge: Report #: [id number] Path Case #: [id number] Specimen Comment: [id number] Specimen Comment: Report sent to / DR HORNER Performed at: 01 [facility] [address], [place] [id number] MD Dmitry Echavarria MD Phone: [phone] Performed at: [address] [id number] MD Fabiola Vance MD Phone: [phone]
[2020-10-05] MEDS ORDERED: HUMALOG100 UNIT/1 SUBQ (12:22)
[2020-10-05] MEDS ORDERED: LISINOPRIL20 MG PO (12:22)
[2020-10-05] MEDS ORDERED: HYDROCODON-ACE1 EAC7 PO (12:30)
--- NOTE | 2020-10-05 15:05 | HC ---
[facility] [place] [address] CONSULTATION Name: SAMARIA OLMEDO Room #: 444-P ADM IN M.R.#: [id number] Admission: 10/02/20 Attend Phys: Finesse Hawkins MD Discharge: Date of : 57 Report #: [id number] THIS REPORT FOR: cc: Chilo Gupta MD, Christopher B. MD Smithson, David G. MD ~ DATE OF SERVICE: 10/02/2020 HISTORY OF PRESENT ILLNESS: The patient is a 65-year-old female who was having problems with abdominal discomfort, noted to have gallstones, was admitted to [facility], underwent cholecystectomy with an initial laparoscopic cholecystectomy, which then was changed to an open cholecystectomy on 10/01. She is slow in progressing postoperatively and has multiple medical comorbidities. We are seeing her in rehabilitation medicine consultation. PAST MEDICAL HISTORY: Includes insulin-dependent diabetes mellitus, obesity, asthma, elevated lipids, diverticulitis, neuropathy, sarcoidosis, GERD, a migraine-like seizure disorder, bipolar disorder. MEDICATIONS: Please see the full medication listing. ALLERGIES: She has MULTIPLE ALLERGIES, please see list. SOCIAL HISTORY: Lives in a house with her , 2 steps in. Uses a roller walker. He needs to help her up through steps. REVIEW OF SYSTEMS: Has complaints of her abdomen as expected. Complains of generalized weakness. No current chest pain, shortness of breath. PHYSICAL EXAMINATION: GENERAL: She is a 65-year-old obese female, in no obvious distress. VITAL SIGNS: Temperature 37.2, pulse 95, respirations 19, blood pressure 138/70. NEUROLOGIC: She is alert. She will follow basic one-step commands. HEENT: Facies are symmetric. ABDOMEN: I did not examine her abdominal area. EXTREMITIES: She has functional range of motion of the upper extremity. Strength is a grade 3+/5. DTRs are trace to 1. Lower extremities: No focal calf swelling. Functional range of motion. Strength is probably a grade 3+/5. DTRs are trace to 1. She has been mod assist sit to stand. Gait was mod assist, one foot with a front-wheeled walker. ASSESSMENT: A 65-year-old female with the following problem list: 1. Generalized weakness and debilitation. 2. Cholecystectomy with gallstones, status post laparoscopic cholecystectomy, which was changed to an open cholecystectomy. [address] [address] CONSULTATION Name: SAMARIA OLMEDO Room #: 444-P [facility] IN M.R.#: [id number] Admission: 10/02/20 Attend Phys: Finesse Hawkins MD Discharge: Date of : 57 Report #: [id number] 3. Insulin-dependent diabetes mellitus. 4. History of asthma. 5. Elevated lipids. 6. Diverticulitis. 7. Sarcoidosis. 8. Gastroesophageal reflux disease. 9. Bipolar. 10. Migraine-like seizure disorder. PLAN: We would agree with skilled level options as you are currently considering. This would appear to be most appropriate for this patient. Thank you for asking us to assist in this patient's care. <ELECTRONICALLY SIGNED> By: Jose Goldberg MD 10/05/20 1505 1520 0033 Jose Goldberg MD /nt
--- NOTE | 2020-10-06 16:27 | NUR ---
LATE ENTRY FROM 10/05/20:ON-GOING ASSESSMENT: CM REVIEWED CHART AND SPOKE WITH ATTENDING. PT IS STABLE TO DISCHARGE TO SNF TODAY. CM SPOKE WITH [place] FROM [facility] WHO REPORTS THEY CAN ACCEPT HER TODAY. CM FAXED DISCHARGE PAPERWORK TO FACILITY AND CONFIRMED THEY RECEIVED IT. CM ALSO SPOKE WITH PT WHO IS AGREEABLE WITH THE PLAN AND REPORTS SHE HAS BEEN TALKING WITH HER AND WILL CONTINUE TO UPDATE HIM. TRANSPORTATION HAS BEEN ARRANGED FOR 1630. BEDSIDE RN AND PT ARE AWARE. BEDSIDE RN HAS THE NUMBER FOR REPORT. CHART COPY WAS ORDERED. PT REPORTS NO FURTHER NEEDS FROM CM PRIOR TO DISCHARGE. CASE CLOSED.
== END 2020-10-05 17:00 | DRG 414 ==
LOC: OR 07:11 → 4S 15:44 → OR 16:06 → 4S 10-02 13:36
PROVIDERS: ADMIT Surgery; ATTEND Surgery
DX: K80.10 Calculus of gallbladder with chronic cholecystitis without obstruction (principal); J96.01 Acute respiratory failure with hypoxia; E44.1 Mild protein-calorie malnutrition; I10 Essential (primary) hypertension; E78.5 Hyperlipidemia, unspecified; F31.9 Bipolar disorder, unspecified; G47.30 Sleep apnea, unspecified; J45.909 Unspecified asthma, uncomplicated; G43.909 Migraine, unspecified, not intractable, without status migrainosus; F41.9 Anxiety disorder, unspecified; M19.90 Unspecified osteoarthritis, unspecified site; K21.9 Gastro-esophageal reflux disease without esophagitis; G40.909 Epilepsy, unspecified, not intractable, without status epilepticus; E11.40 Type 2 diabetes mellitus with diabetic neuropathy, unspecified; D86.9 Sarcoidosis, unspecified; R53.81 Other malaise; E66.01 Morbid (severe) obesity due to excess calories; Z20.822 Contact with and (suspected) exposure to COVID-19; Z88.8 Allergy status to other drugs, medicaments and biological substances; Z88.5 Allergy status to narcotic agent; Z90.49 Acquired absence of other specified parts of digestive tract; Z90.710 Acquired absence of both cervix and uterus; Z98.891 History of uterine scar from previous surgery; Z85.42 Personal history of malignant neoplasm of other parts of uterus; Z68.36 Body mass index [BMI] 36.0-36.9, adult
CPT/HCPCS: 10102; 50010; 50101; 50411; 50555; 51301; 51489; 51758; 52265; 53065; 53307; 53310; 55245; 55317; 56462; 56524; 56525; 56526; 58574; 58910; 62110; 62900; 65130; 70005

== ENCOUNTER → 2021-04-15 | Outpatient (CLI) | payer OTHER ==
[~2021-04-15] MED LIST changes: +HUMALOG100 UNIT/1 SUBQ; +HYDROCODON-ACE1 EAC7 PO; +LISINOPRIL20 MG PO
== END ==
LOC: LAB 09:18
PROVIDERS: ATTEND Student in an Organized Health Care Education/Training Program
DX: Z01.812 Encounter for preprocedural laboratory examination (principal); Z20.822 Contact with and (suspected) exposure to COVID-19

== ENCOUNTER → 2021-04-19 | Outpatient (CLI) | payer OTHER ==
[~2021-04-19] VITALS: Ht 175.3 cm; Wt 108.9 kg
== END | disposition home or self-care (01) ==
LOC: GI 07:47
PROVIDERS: ATTEND Internal Medicine Gastroenterology
DX: Z12.11 Encounter for screening for malignant neoplasm of colon (principal); I10 Essential (primary) hypertension; E11.9 Type 2 diabetes mellitus without complications; E78.00 Pure hypercholesterolemia, unspecified; G43.909 Migraine, unspecified, not intractable, without status migrainosus; M19.90 Unspecified osteoarthritis, unspecified site; F32.9 Major depressive disorder, single episode, unspecified; F41.9 Anxiety disorder, unspecified; J45.909 Unspecified asthma, uncomplicated; G47.30 Sleep apnea, unspecified; Z98.890 Other specified postprocedural states; Z79.899 Other long term (current) drug therapy; Z85.41 Personal history of malignant neoplasm of cervix uteri
CPT/HCPCS: 62110; 62900